=== PATIENT | female | born 1990 | race Caucasian/White ===

== ENCOUNTER 2017-08-05 03:39 | Emergency (ER) | payer MEDICAID, OTHER ==
[2017-08-05] MEDS ORDERED: Ondansetron HCl/PF 4 MG/2 ML Vial ONE (04:15)
[2017-08-05] MEDS ORDERED: Ketorolac Tromethamine 30 MG/ML VIAL ONE (04:15)
[2017-08-05 04:17] LABS: #Basophils 0.1 thou/uL (0.0-0.2); #Eosinphils 0.1 thou/uL (0.0-0.7); #Lymphocytes 1.8 thou/uL (1.20-3.40); #Monocytes 0.5 thou/uL (0.11-0.59); #Neutrophils 8.4 thou/uL (1.40-6.50); %Basophils 0.6 % (0.0-1.0); %Eosinophils 1.3 % (0.0-10.0); %Lymphocytes 16.2 % (21.0-51.0); %Neutrophils 76.9 % (42.0-75.0); Hemoglobin 14.4 g/dL (12.0-16.0); Mean Corpuscular HGB CONC 34.7 g/dL (32.0-36.0); Mean Corpuscular Volume 83.6 fl (81.0-99.0); Mean Platelet Volume 7.7 fL (7.4-10.4); Platelet Count 325 thou/uL (130-400); RBC Distribution Width 11.9 % (11.5-14.5); Red Blood Cell (RBC) Count 4.95 mill/uL (4.20-5.40); White Blood Cell (WBC) Count 10.9 thou/uL (4.8-10.8)
[2017-08-05 04:22] LABS: Clarity Clear (Clear)
[2017-08-05 04:23] LABS: pH, Urine 6.5 (5.0-9.0)
[2017-08-05 04:24] LABS: Bilirubin Negative (Negative); Blood, Urine Negative (Negative); Glucose, Urine (Dipstick) Negative (Negative); Leukocyte Negative (Negative); Nitrite Negative (Negative); Protein, Urine (Dipstick) 30 mg/dL (Neg-Trace); Urobilinogen 0.2 mg/dL (0.2-1.0)
[2017-08-05 04:25] LABS: Pregnancy Test - Urine (BHCG) Negative (Negative); Pregu Control Background? CLEAR/WHITE (CLR/WHITE); Pregu Control Bar Appear? YES (CONTROL BAR)
[2017-08-05 04:31] LABS: ALT (SGPT) 18 U/L (8-55); AST (SGOT) 24 U/L (5-34); Albumin 4.5 g/dL (3.5-5.0); Alkaline Phosphatase 89 U/L (40-150); Anion Gap 13 mmol/L (10-20); BUN (Urea Nitrogen) 8 mg/dL (7.0-18.7); Bilirubin, Total 0.3 mg/dL (0.2-1.2); Calc. Creatinine Clearance 0 mL/min (70-130); Calcium 9.4 mg/dL (7.8-10.44); Carbon Dioxide 26 mmol/L (22-29); Chloride 102 mmol/L (98-107); Estimated GFR-MDRD 76; Globulin 3.9 g/dL (2.4-3.5); Glucose 116 mg/dL (70-105); Lipase 43 U/L (8-78); Potassium 3.8 mmol/L (3.5-5.1); Protein, Total 8.4 g/dL (6.0-8.3); Sodium 137 mmol/L (136-145)
[2017-08-05 04:32] LABS: Bacteria/HPF Rare-Few HPF (None Seen); RBC/HPF 0-3 HPF (0-3); Squamous Epithelial 0-3 HPF (0-3); WBC/HPF 0-3 HPF (0-3)
--- NOTE | 2017-08-05 18:20 | CT ---
PRELIMINARY REPORT/[facility]/EMERGENTY AFTER-HOURS PROCEDURE CT Abdomen and Pelvis With Intravenous Contrast EXAM DATE/TIME: 08/05/2017 6:58 AM CLINICAL HISTORY: 27 years old, female; Pain; Abdominal pain; Localized; Lower; Patient HX: Lower abd pain x 2 days wit h n/v TECHNIQUE: Axial computed tomography images of the abdomen and pelvis with intravenous contrast. Coronal and sag ittal reformatted images were created and reviewed. CONTRAST: 100 mL of ISO 370 administered intravenously. COMPARISON: No relevant prior studies available. FINDINGS: Lung bases: Unremarkable. No mass. No consolidation. ABDOMEN: Liver: Unremarkable. No mass. Gallbladder and bile ducts: Unremarkable. Pancreas: Unremarkable. Spleen: normal Adrenals: Unremarkable. No mass. Kidneys and ureters: Unremarkable. No solid mass. No hydronephrosis. Stomach and bowel: -Large amount of stool throughout the large bowel. PELVIS: Appendix: The appendix is not visualized. Bladder: Unremarkable. No mass. Reproductive: normal. No mass ABDOMEN and PELVIS: Intraperitoneal space: Unremarkable. No free air. No significant fluid collection. Bones/joints: No acute fracture. No dislocation. Soft tissues: Unremarkable. Vasculature: Unremarkable. No abdominal aortic aneurysm. Lymph nodes: Unremarkable. No enlarged lymph nodes. Other findings: No acute intra-abdominal process. No inflammatory process. No obstruction. IMPRESSION: 1. -Large amount of stool throughout the large bowel. 2. No acute intra-abdominal process. No inflammatory process. No obstruction. Thank you for allowing us to participate in the care of your patient. Dictated and Authenticated by: Ozzy Sauer MD 08/05/2017 7:52 AM Central Time ([place] & [place]) POS: HOME
== END 2017-08-05 08:04 | disposition home or self-care (01) ==
LOC: BURERS 03:39
DX: R10.84 Generalized abdominal pain (principal); F41.9 Anxiety disorder, unspecified; F32.9 Major depressive disorder, single episode, unspecified
CPT/HCPCS: 74177; 80053; 81003; 81015; 81025; 83690; 85025; 96361; 96374; 96375; J1885; J2405